=== PATIENT | female | born 1980 ===

== ENCOUNTER → 2023-05-05 | Outpatient (CLI) | payer SELFPAY ==
[2023-05-06 10:54] LABS: Candida species (DNA Probe) Negative (NEGATIVE); G. vaginalis (DNA Probe) Negative (NEGATIVE); T. vaginalis (DNA Probe) Negative (NEGATIVE)
[2023-05-07 15:09] LABS: HPV 16 Negative (Negative); HPV 18 Negative (Negative); HPV OTHER HR TYPES Negative (Negative)
== END | disposition home or self-care (01) ==
LOC: LAB 15:03 → LAB SHORT 15:03
PROVIDERS: Advanced Practice Midwife
DX: Z01.419 Encounter for gynecological examination (general) (routine) without abnormal findings (principal); N76.0 Acute vaginitis
CPT/HCPCS: 87480; 87510; 87624; 87660; G0145

== ENCOUNTER 2024-03-01 13:44 | Day surgery (SDC) | payer OTHER ==
[~2024-03-01] VITALS: Ht 157.5 cm; Wt 67.3 kg
[~2024-03-01 13:44] MED LIST: Lactated Ringer's 1,000 ML IV ONE; propofoL 50 ML IV ONE
[2024-03-01] MEDS ORDERED: LACT (14:05)
[2024-03-01] MEDS ORDERED: CALCIUM 500 MG1 EAC2 (14:05)
[2024-03-01] MEDS ORDERED: MULVITA (14:06)
[2024-03-01] MEDS ORDERED: Lactated Ringer's 1,000 ML IV ONE (14:22)
[2024-03-01] MEDS ORDERED: propofoL 50 ML IV ONE (15:12)
[2024-03-01 16:32] VITALS: BP 111/84
== END 2024-03-01 16:00 | disposition home or self-care (01) ==
LOC: ORSCSDS 13:44
PROVIDERS: Specialist
PROC: 0DJD8ZZ Inspection of Lower Intestinal Tract, Via Natural or Artificial Opening Endoscopic (ICD-10-PCS; principal; 2024-03-01 14:45)
DX: K62.5 Hemorrhage of anus and rectum (principal); K59.00 Constipation, unspecified; Z83.719 Family history of colon polyps, unspecified; Z87.891 Personal history of nicotine dependence
CPT/HCPCS: J2704; J7120